=== PATIENT | male | born 1935 | race Caucasian/White ===

== ENCOUNTER 2020-01-09 10:36 | Outpatient (RCR) | payer MEDICARE | END 2020-02-06 | disposition home or self-care (01) | PROVIDERS: ATTEND Nurse Practitioner Family | DX: Z47.1 Aftercare following joint replacement surgery (principal); Z96.651 Presence of right artificial knee joint; M54.5 Low back pain; M25.551 Pain in right hip; E11.9 Type 2 diabetes mellitus without complications ==

== ENCOUNTER 2020-08-15 14:48 | Outpatient (RCR) | payer MEDICARE | END 2020-10-15 | disposition home or self-care (01) | PROVIDERS: ATTEND Nurse Practitioner Family | DX: Z96.612 Presence of left artificial shoulder joint (principal) ==

== ENCOUNTER 2020-11-07 08:45 | Outpatient (RCR) | payer MEDICARE | END 2020-12-25 08:30 | disposition home or self-care (01) | PROVIDERS: ATTEND Nurse Practitioner Family | DX: Z96.612 Presence of left artificial shoulder joint (principal) | CPT/HCPCS: 97161; G0283 ==

== ENCOUNTER → 2021-07-15 | Outpatient (RCR) | payer MEDICARE | END | disposition home or self-care (01) | PROVIDERS: ATTEND Family Medicine | DX: R53.1 Weakness (principal); R42 Dizziness and giddiness; R26.89 Other abnormalities of gait and mobility; I10 Essential (primary) hypertension; E11.9 Type 2 diabetes mellitus without complications ==

== ENCOUNTER 2021-08-02 13:00 | Outpatient (RCR) | payer MEDICARE | END 2021-08-12 | disposition home or self-care (01) | PROVIDERS: ATTEND Family Medicine | DX: R53.1 Weakness (principal); R42 Dizziness and giddiness; R26.89 Other abnormalities of gait and mobility; I10 Essential (primary) hypertension; E11.9 Type 2 diabetes mellitus without complications ==

== ENCOUNTER → 2021-09-12 | Outpatient (RCR) | payer MEDICARE | END | disposition home or self-care (01) | PROVIDERS: ATTEND Nurse Practitioner Family | DX: T84.022A Instability of internal right knee prosthesis, initial encounter (principal); Z96.651 Presence of right artificial knee joint ==

== ENCOUNTER 2021-09-23 10:01 | Outpatient (RCR) | payer MEDICARE | END 2021-10-12 | disposition home or self-care (01) | PROVIDERS: ATTEND Nurse Practitioner Family | DX: T84.022D Instability of internal right knee prosthesis, subsequent encounter (principal); I10 Essential (primary) hypertension; E11.9 Type 2 diabetes mellitus without complications; Z96.651 Presence of right artificial knee joint; Z96.652 Presence of left artificial knee joint ==

== ENCOUNTER 2021-12-11 09:36 | Outpatient (RCR) | payer MEDICARE | END 2021-12-12 | disposition home or self-care (01) | PROVIDERS: ATTEND Nurse Practitioner Family | DX: R42 Dizziness and giddiness (principal); M54.2 Cervicalgia ==

== ENCOUNTER 2021-12-25 10:28 | Outpatient (RCR) | payer MEDICARE | END 2022-01-12 | disposition home or self-care (01) | PROVIDERS: ATTEND Nurse Practitioner Family | DX: R42 Dizziness and giddiness (principal) ==

== ENCOUNTER 2022-01-23 14:02 | Outpatient (RCR) | payer MEDICARE | END 2022-02-12 | disposition home or self-care (01) | PROVIDERS: ATTEND Nurse Practitioner Family | DX: M54.2 Cervicalgia (principal); R42 Dizziness and giddiness ==